=== PATIENT | male | born 1995 | race Caucasian/White ===

== ENCOUNTER 2017-12-06 17:49 | Emergency (ER) | payer OTHER ==
[~2017-12-06] VITALS: Ht 180.3 cm; Wt 72.6 kg
[2017-12-06 18:10] VITALS: Ht 180.3 cm; Wt 72.6 kg
[2017-12-06 19:50] VITALS: BP 120/80
== END 2017-12-06 19:50 | disposition home or self-care (01) ==
LOC: ED 17:49
DX: S01.511A Laceration without foreign body of lip, initial encounter (principal); R03.0 Elevated blood-pressure reading, without diagnosis of hypertension; W22.8XXA Striking against or struck by other objects, initial encounter; Y93.89 Activity, other specified; Y92.89 Other specified places as the place of occurrence of the external cause; Y99.8 Other external cause status
CPT/HCPCS: J2001